=== PATIENT | male | born 1945 | race Caucasian/White ===

== ENCOUNTER 2018-10-04 11:15 | Day surgery (SDC) | payer MEDICARE, OTHER ==
[~2018-10-04] VITALS: Ht 172.7 cm; Wt 120.9 kg
[2018-10-04] VITALS (9 sets, daily range): BP systolic 136–180; BP diastolic 58–91; PULSE 65–97; TEMP 97.8–97.9
[2018-10-04] MEDS ORDERED: NORVASC 10MG10 MG PO (11:56)
[2018-10-04] MEDS ORDERED: ASPIRIN 81M81 MG/TA2 PO (11:56)
[2018-10-04] MEDS ORDERED: VITAMIN D 1001000 IU PO (11:57)
[2018-10-04] MEDS ORDERED: HCTZ 25MG TAB25 MG PO (11:57)
[2018-10-04] MEDS ORDERED: GLUCOPHAGE500 MG/TAB PO (11:58)
[2018-10-04] MEDS ORDERED: ZESTRIL40 MG PO (11:58)
[2018-10-04] MEDS ORDERED: MULTI VITAMINS1 TAB PO (11:59)
[2018-10-04] MEDS ORDERED: MYRBETR25MG PO (11:59)
[2018-10-04] MEDS ORDERED: OMEGA-3 FISH1000 MG PO (12:00)
[2018-10-04] MEDS ORDERED: PRILOSEC 20MG20 MG PO (12:01)
[2018-10-04] MEDS ORDERED: K-TAB20 PO (12:01)
[2018-10-04] MEDS ORDERED: PRAVACHOL80 MG PO (12:02)
[2018-10-04] MEDS ORDERED: VESICARE10 MG PO (12:02)
[2018-10-04] MEDS ORDERED: VITAMIN B COMPL1 T16 PO (12:03)
--- NOTE | 2018-10-04 14:20 | NUR ---
The patient was taken back to the OR via cart by ALEAH Miramontes at this time. The patient's belongings will be taken over to the recovery room and will be transferred up with the patient to the third flood post operatively.
--- NOTE | 2018-10-04 19:37 | NUR ---
Patient has had difficulty with bladder spasms since arrival to Room 349 post op. Patient was medicated with pain per orders & then was nauseated & medicated with Zofran. notified & orders to DC carroll obtained. Patient so relieved to have carroll removed & reports his pain is improved. He was able to void a small amount already. Vss on Room air. HTN related to pain. Bedside report to Michael BULLARD.
--- NOTE | 2018-10-04 21:12 | NUR ---
Pt resting in bed watching TV, has C/O pain when urinating, started 6 cup collection after carroll was removed by previous shift, shift assessments complete, left Pt call light in reach, bed in lowest position.
[2018-10-05] VITALS: BP 193/81; PULSE 79; TEMP 97.8
--- NOTE | 2018-10-05 07:30 | NUR ---
Dr. Long in to see patient.
[2018-10-05 07:50] VITALS: BP 160/86; PULSE 66; TEMP 97.9
--- NOTE | 2018-10-05 08:00 | NUR ---
Patient in bed resting. Alert and oriented x3. Shift assessment complete. Deneis pain at this time, however would like to take something for pain before leaving because he has a long drive.
--- NOTE | 2018-10-05 09:03 | NUR ---
Initial visit; Patient thanked Kier Tender for looking in on him and wishing him well.
--- NOTE | 2018-10-05 10:30 | NUR ---
Discharge instructions provided to patient. Patient educated on signs and symptoms of infection. Patient educated on medications and when to call provider. Verbalized understanding. Would like tylenol for pain 3/10 prior to leaving. Given per orders. IV to left wrist discontinued, catheter tip intact, tolerated procedure well. Denies further needs at this time. Patient waiting for ride, will call when ready to leave.
--- NOTE | 2018-10-05 11:00 | NUR ---
Patient ambulated out with surgical staff.
--- NOTE | 2018-10-05 11:45 | NUR ---
SW met with patient about discharge planning. Patient lives independently at home with his and plans to return there when he is discharged later today. Patient's PCP is Dr Carlson and he obtains prescriptions from [facility] in [place], [place]. Patient does not use any DME or home health services. Patient does not have a DPOA and is not interested in completing one at this time. SW does not anticipate any discharge needs.
== END 2018-10-05 11:00 | disposition home or self-care (01) ==
LOC: SDCO 11:15 → SURG 15:50 → SDCO 10-05 11:00
DX: C67.1 Malignant neoplasm of dome of bladder (principal); C67.9 Malignant neoplasm of bladder, unspecified; Z79.899 Other long term (current) drug therapy; E11.9 Type 2 diabetes mellitus without complications; Z79.84 Long term (current) use of oral hypoglycemic drugs; Z79.82 Long term (current) use of aspirin; K21.9 Gastro-esophageal reflux disease without esophagitis; K44.9 Diaphragmatic hernia without obstruction or gangrene; F17.210 Nicotine dependence, cigarettes, uncomplicated; I25.10 Atherosclerotic heart disease of native coronary artery without angina pectoris; I10 Essential (primary) hypertension; G47.33 Obstructive sleep apnea (adult) (pediatric); Z86.718 Personal history of other venous thrombosis and embolism; M19.90 Unspecified osteoarthritis, unspecified site; Z96.60 Presence of unspecified orthopedic joint implant; E78.5 Hyperlipidemia, unspecified; Z80.9 Family history of malignant neoplasm, unspecified; Z82.49 Family history of ischemic heart disease and other diseases of the circulatory system; Z83.3 Family history of diabetes mellitus
CPT/HCPCS: OP; J0690; J1170; J2175; J2270; J2405; J2704; J3010; J3480; J7030